=== PATIENT | male | born 1975 | race Caucasian/White ===

== ENCOUNTER 2016-07-29 14:49 | Emergency (ER) | payer OTHER ==
[2016-07-29 15:01] VITALS: TEMP 97.9; BMI 58.7
--- NOTE | 2016-07-29 15:02 | PDOC ---
Rapid Medical Evaluation Chief Complaint: Headache Time Seen by Provider: 07/29/16 14:56 Medical Evaluation: Allergies Allergy/AdvReac Type Severity Reaction Status Date / Time No Known Allergies Allergy Verified 01/18/16 02:33 07/29/16 14:57 I have performed a brief in-person evaluation of this patient. The patient presents with a chief complaint of: Headache and dizziness x 3 days. Has h/o HTN, ETOH cirrhosis C/B GIB Pertinent physical exam findings: Vss and well appearing, in NAD w/ neuro exam grossly intact I have ordered the following: chem/cbc/ua The patient will proceed to the ED for further evaluation. 07/29/16 15:00 07/29/16 15:01
[2016-07-29 15:17] LABS: BASOPHIL 0.8 % (0-2.0); EOSINOPHIL 3.1 % (0-4.5); MCH 28.1 pg (25.7-33.7); MCHC 33.3 g/dl (32.0-35.9); MEAN CELL VOLUME 84.3 fl (80-96); MEAN PLT VOLUME 7.7 fl (7.5-11.1); NEUTROPHILS 62.2 % (42.8-82.8); PLATELET COUNT 44 K/MM3 (134-434); RDW 19.5 % (11.9-15.9); WHITE BLOOD COUNT 5.8 K/mm3 (4.0-10.0)
[2016-07-29 15:18] LABS: URINE APPEARANCE CLEAR; URINE BILIRUBIN NEGATIVE (NEGATIVE); URINE BLOOD NEGATIVE (NEGATIVE); URINE COLOR YELLOW; URINE GLUCOSE (UA) NEGATIVE (NEGATIVE); URINE KETONE NEGATIVE (NEGATIVE); URINE LEUK ESTERASE NEGATIVE (NEGATIVE); URINE NITRITE NEGATIVE (NEGATIVE); URINE PROTEIN NEGATIVE (NEGATIVE); URINE UROBILINOGEN NEGATIVE E.U./dl (0.2-1.0)
[2016-07-29 15:48] LABS: ALBUMIN 3.3 g/dl (3.4-5.0); ANION GAP 8 (8-16); BILIRUBIN,TOTAL 3.9 mg/dL (0.2-1.0); CALCIUM 8.8 mg/dL (8.5-10.1); CO2 23 mmol/L (21-32); CREATININE 0.6 mg/dL (0.7-1.3); GLUCOSE,RANDOM 81 mg/dL (74-106); SGOT/AST 63 U/L (15-37); SGPT/ALT 48 U/L (12-78)
[2016-07-29 15:49] LABS: ALK PHOS 263 U/L (45-117)
[2016-07-29] MEDS ORDERED: METOCLOPRAMIDE HCL INJECTION 10 MG/2 ML VIAL IVPB ONE (16:32)
--- NOTE | 2016-07-29 16:33 | PDOC ---
History of Present Illness - History of Present Illness Initial Comments: 07/29/16 17:25 Patient is a 41 year old male with significant medical hx of HTN and liver cirrhosis (on transplant list for one year) who is presenting to the ED with three days of headache. Patient complains of persistent frontal headache that started suddenly three days ago. He's been taking tylenol for his pain with little relief. The patient denies any fever, chills, nausea, vomiting, visual changes, or vertigo. <Kaylie Justin - Last Filed: 07/29/16 18:24> <Emma Ojeda - Last Filed: 07/29/16 19:06> - General Chief Complaint: Headache Stated Complaint: HEADACHE Time Seen by Provider: 07/29/16 14:56 Past History <Kaylie Justin - Last Filed: 07/29/16 18:24> - Past Medical History Anemia: No Asthma: No Cancer: No Cardiac Disorders: No CVA: No COPD: No CHF: No Dementia: No Diabetes: No GI Disorders: Yes (UPPER GI BLEED FOR PORTAL HYPERTENSION) Disorders: No HTN: Yes Hypercholesterolemia: No Liver Disease: Yes (CIRRHOSIS, ALCOHOLIC HEPATITIS, HEPATIC ENCEPHALOPATHY) Suicide Attempt (Hx): No Seizures: No Thyroid Disease: No - Surgical History Abdominal Surgery: No Appendectomy: No Cardiac Surgery: No Cholecystectomy: No Lung Surgery: No Neurologic Surgery: No Orthopedic Surgery: No - Psycho/Social/Smoking Cessation Hx Anxiety: No Suicidal Ideation: No Smoking History: Former smoker Have you smoked in the past 12 months: No Number of Cigarettes Smoked Daily: 1 If you are a former smoker, when did you quit?: 2013 Information on smoking cessation initiated: No 'Breaking Loose' booklet given: 03/10/14 Hx Alcohol Use: No Drug/Substance Use Hx: No Substance Use Type: Alcohol Hx Substance Use Treatment: No <Emma Ojeda - Last Filed: 07/29/16 19:06> - Past Medical History Allergies/Adverse Reactions: Allergies Allergy/AdvReac Type Severity Reaction Status Date / Time No Known Allergies Allergy Verified 07/29/16 15:00 Home Medications: Ambulatory Orders Rifaximin [Xifaxan -] 550 mg PO BID #60 tablet 03/04/15 Nadolol [Corgard -] 20 mg PO DAILY #30 tablet 03/24/15 Pentoxifylline [Trental -] 400 mg PO TIDCM #90 tablet.er 03/24/15 Lactulose (Oral Use) [Cephulac -] 15 ml PO BID 05/04/15 Pantoprazole Sodium [Protonix -] 40 mg PO DAILY 01/18/16 Review of Systems - Review of Systems Comments:: 07/29/16 17:33 CONSTITUTIONAL: Absent: fever, chills, diaphoresis, generalized weakness, malaise, loss of appetite HEENT: Absent: rhinorrhea, nasal congestion, throat pain, throat swelling, difficulty swallowing, mouth swelling, ear pain, eye pain, visual changes CARDIOVASCULAR: Absent: chest pain, syncope, palpitations, irregular heart rate, lightheadedness , peripheral edema RESPIRATORY: Absent: cough, shortness of breath, dyspnea with exertion, orthopnea, wheezing, stridor, hemoptysis GASTROINTESTINAL: Absent: abdominal pain, abdominal distension, nausea, vomiting, diarrhea, constipation, melena, hematochezia GENITOURINARY: Absent: dysuria, frequency, urgency, hesitancy, hematuria, flank pain, genital pain MUSCULOSKELETAL: Absent: myalgia, arthralgia, joint swelling SKIN: Absent: rash, itching, pallor HEMATOLOGIC/IMMUNOLOGIC: Absent: easy bleeding, easy bruising, lymphadenopathy, frequent infections ENDOCRINE: Absent: unexplained weight gain, unexplained weight loss, heat intolerance, cold intolerance NEUROLOGIC: Present: headache Absent: focal weakness or paresthesia, dizziness, unsteady gait, seizure, mental status changes, bladder or bowel incontinence. PSYCHIATRIC: Absent: anxiety, depression, suicidal or homicidal ideation, hallucinations <Henry Justina - Last Filed: 07/29/16 18:24> *Physical Exam - Vital Signs Last Vital Signs Temp Pulse Resp BP Pulse Ox 97.9 F 67 18 117/61 100 07/29/16 14:57 07/29/16 14:57 07/29/16 14:57 07/29/16 14:57 07/29/16 14:57 - Physical Exam Comments: 07/29/16 17:33 GENERAL: Well developed, well nourished. Awake and alert. No acute distress. HEENT: Normocephalic, atraumatic. PERRLA, EOMI. No conjunctival pallor. Scleral icterus. Moist mucous membranes. Oropharynx is clear. NECK: Supple. Full ROM. No JVD. Carotid pulses 2+ and symmetric, without bruits. No thyromegaly. No lymphadenopathy. CARDIOVASCULAR: Regular rate and rhythm. No murmurs, rubs, or gallops. Distal pulses are 2+ and symmetric. PULMONARY: No evidence of respiratory distress. Lungs clear to auscultation bilaterally. No wheezing, rales or rhonchi. ABDOMINAL: Soft. Non-tender. Non-distended. No rebound or guarding. No organomegaly. Normoactive bowel sounds. MUSCULOSKELETAL: Normal range of motion at all joints. No bony deformities or tenderness. No CVA tenderness. EXTREMITIES: No cyanosis. No clubbing. No edema. No calf tenderness. SKIN: Warm and dry. Normal capillary refill. No rashes. Jaundice (baseline). NEUROLOGICAL: Alert, awake, appropriate. Cranial nerves 2-12 intact. Normal speech. Gait is normal without ataxia. PSYCHIATRIC: Cooperative. Good eye contact. Appropriate mood and affect. <Kaylie Justin - Last Filed: 07/29/16 18:24> - Vital Signs Last Vital Signs Temp Pulse Resp BP Pulse Ox 97.9 F 67 18 117/61 100 07/29/16 14:57 07/29/16 14:57 07/29/16 14:57 07/29/16 14:57 07/29/16 14:57 <Emma Ojeda - Last Filed: 07/29/16 19:06> ED Treatment Course - LABORATORY CBC & Chemistry Diagram: 07/29/16 15:10 07/29/16 15:10 - ADDITIONAL ORDERS Additional order review: Laboratory Results 07/29/16 07/29/16 15:10 15:10 Sodium 143 Potassium 4.1 Chloride 112 H Carbon Dioxide 23 Anion Gap 8 BUN 8 D Creatinine 0.6 L Creat Clearance w eGFR > 60 Random Glucose 81 Calcium 8.8 Total Bilirubin 3.9 H D AST 63 H D ALT 48 D Alkaline Phosphatase 263 H Total Protein 7.0 Albumin 3.3 L Lipase 270 Urine Color Yellow Urine Appearance Clear Urine pH 8.0 D Urine Protein Negative Urine Glucose (UA) Negative Urine Ketones Negative Urine Blood Negative Urine Nitrite Negative Urine Bilirubin Negative Urine Urobilinogen Negative Ur Leukocyte Esterase Negative 07/29/16 15:10 RBC 5.10 MCV 84.3 MCHC 33.3 RDW 19.5 H D MPV 7.7 Neutrophils % 62.2 D Lymphocytes % 22.8 D Monocytes % 11.1 H Eosinophils % 3.1 Basophils % 0.8 - RADIOLOGY Radiograph Interpretation: 07/29/16 18:[address] Impression: Mild volume loss and ventricular dilatation without gross evidence of acute intracranial pathology. Correlate clinically to determine further evaluation and follow-up. Reported By: Antony Pagan MD - Medications Given in the ED: ED Medications Discontinued Medications Generic Name Dose Route Start Last Admin Trade Name Toneq PRN Reason Stop Dose Admin Diphenhydramine HCl 25 mg 07/29/16 16:32 07/29/16 17:03 Benadryl Injection - IVPUSH 07/29/16 16:33 25 mg ONCE ONE Administration Metoclopramide HCl 10 mg 07/29/16 16:32 07/29/16 17:03 Reglan Injection - IVPB 07/29/16 16:33 10 mg ONCE ONE Administration - Consult/PCP Time Called: 18:04 (Case discussed with nurse covering for Dr. Serrano from [facility]. Requesting blood alcohol level due to new onset of slceral icterus.) <Kaylie Justin - Last Filed: 07/29/16 18:24> - LABORATORY CBC & Chemistry Diagram: 07/29/16 15:10 07/29/16 15:10 - ADDITIONAL ORDERS Additional order review: Laboratory Results 07/29/16 07/29/16 15:10 15:10 Sodium 143 Potassium 4.1 Chloride 112 H Carbon Dioxide 23 Anion Gap 8 BUN 8 D Creatinine 0.6 L Creat Clearance w eGFR > 60 Random Glucose 81 Calcium 8.8 Total Bilirubin 3.9 H D AST 63 H D ALT 48 D Alkaline Phosphatase 263 H Total Protein 7.0 Albumin 3.3 L Lipase 270 Urine Color Yellow Urine Appearance Clear Urine pH 8.0 D Urine Protein Negative Urine Glucose (UA) Negative Urine Ketones Negative Urine Blood Negative Urine Nitrite Negative Urine Bilirubin Negative Urine Urobilinogen Negative Ur Leukocyte Esterase Negative 07/29/16 15:10 RBC 5.10 MCV 84.3 MCHC 33.3 RDW 19.5 H D MPV 7.7 Neutrophils % 62.2 D Lymphocytes % 22.8 D Monocytes % 11.1 H Eosinophils % 3.1 Basophils % 0.8 - RADIOLOGY Radiology Studies Ordered: Category Date Time Status HEAD CT WITHOUT CONTRAST [CT] Stat CT Scan 07/29/16 16:31 Ordered <Emma Ojeda - Last Filed: 07/29/16 19:06> Medical Decision Making - Medical Decision Making 07/29/16 18:51 41-year-old male presents with 3 day persistent new headache. It is frontal, not associated with any gross focal neural deficits. He has thrombocytopenia with platelets of 41,000. This is a chronic situation He is on the liver transplant waiting list and followed at [facility]. He has icteric sclera. I spoke with Jasmina Garner from the transplant team and she has requested an alcohol level since his icteric sclera was new. Alcohol level was negative. CAT scan of the head did not show any acute intracranial pathology. Patient's headache resolved and the patient was discharged to follow-up with Dr. Alston at [facility] <Emma Ojeda - Last Filed: 07/29/16 19:06> *DC/Admit/Observation/Transfer - Attestations Scribe Attestion: 07/29/16 17:34 Documentation prepared by Kaylie Justin, acting as medical technicians for Emma Ojeda MD. <Kaylie Justin - Last Filed: 07/29/16 18:24> <Emma Ojeda - Last Filed: 07/29/16 19:06> Diagnosis at time of Disposition: Thrombocythemia Alcoholic cirrhosis Qualifiers: Ascites presence: without ascites Qualified Code(s): K70.30 - Alcoholic cirrhosis of liver without ascites - Discharge Dispostion Disposition: HOME Condition at time of disposition: Stable - Referrals Referrals: Vibha Barnard MD [Primary Care Provider] - Felipe Rao MD [Staff Physician] - Favian Schneider MD [Staff Physician] - - Patient Instructions Printed Discharge Instructions: DI for Hormonal and Tension Headaches Additional Instructions: please followup with your doctors at [facility] I have given you the name of a neurologist that you should contact if you have recurrent headaches Return if you develop headaches associated with visual changes,arm or leg weakness,or vomiting
[2016-07-29] MEDS ORDERED: METOCLOPRAMIDE HCL INJECTION 10 MG/2 ML VIAL ONE (16:54)
[2016-07-29 19:20] VITALS: BP 122/65; PULSE 70
== END 2016-07-29 19:22 | disposition home or self-care (01) ==
LOC: SUPCPDRO 14:49 → JER 14:49
PROC: 3E033GC Introduction of Other Therapeutic Substance into Peripheral Vein, Percutaneous Approach (ICD-10-PCS; principal; 2016-07-29)
DX: D69.6 Thrombocytopenia, unspecified (principal); K70.30 Alcoholic cirrhosis of liver without ascites; I10 Essential (primary) hypertension
CPT/HCPCS: 36415; 70450-TC; 80053; 80307; 81003; 83690; 85025; 96374; 96375; 99283-25

== ENCOUNTER 2018-01-09 18:55 | Emergency (ER) | payer OTHER ==
--- NOTE | 2018-01-09 19:07 | PDOC ---
Rapid Medical Evaluation Time Seen by Provider: 01/09/18 19:04 Medical Evaluation: Allergies Allergy/AdvReac Type Severity Reaction Status Date / Time No Known Allergies Allergy Verified 07/29/16 15:00 01/09/18 19:06 I have performed a brief in-person evaluation of this patient. The patient presents with a chief complaint of: Sent in for low potassium on labs yesterday. +malaise. H/o etoh cirrhosis, liver ca (on tx list at [facility]), upper GIB Pertinent physical exam findings:stable I have ordered the following:labs/ekg The patient will proceed to the ED for further evaluation. 01/09/18 19:13 01/09/18 19:17 Discharge Disposition - Diagnosis Hypokalemia - Referrals - Patient Instructions - Post Discharge Activity
[2018-01-09 19:18] VITALS: BMI 30.2
[2018-01-09 19:44] LABS: BASO % 1.3 % (0-2.0); EOS % 5.1 % (0-4.5); HEMATOCRIT 30.6 % (35.4-49); HEMOGLOBIN 11.1 GM/dL (11.7-16.9); LYMPH % 20.5 % (8-40); MCH 35.9 pg (25.7-33.7); MCHC 36.3 g/dl (32.0-35.9); MEAN CELL VOLUME 98.9 fl (80-96); MONO % 10.7 % (3.8-10.2); NEUT % 62.4 % (42.8-82.8); PLATELET COUNT 66 K/MM3 (134-434); RBC 3.09 M/mm3 (4.00-5.60); WHITE BLOOD COUNT 6.2 K/mm3 (4.0-10.0)
[2018-01-09 20:17] LABS: ALBUMIN 2.4 g/dl (3.4-5.0); ALK PHOS 188 U/L (45-117); ANION GAP 9 MMOL/L (8-16); BILIRUBIN,TOTAL 8.4 mg/dL (0.2-1); BLOOD UREA NITROGEN 12 mg/dL (7-18); CALCIUM 7.4 mg/dL (8.5-10.1); CHLORIDE 107 mmol/L (98-107); CO2 25 mmol/L (21-32); CREATININE 0.6 mg/dL (0.55-1.3); GLUCOSE,RANDOM 105 mg/dL (74-106); POTASSIUM 3.6 mmol/L (3.5-5.1); SGOT/AST 102 U/L (15-37); SGPT/ALT 43 U/L (13-61); SODIUM 141 mmol/L (136-145); TOT PROT 5.8 g/dl (6.4-8.2)
[2018-01-09] MEDS ORDERED: MAGNESIUM 1GM/D5W - 2 GM/200 ML IVPB IVPB ONE (21:27)
--- NOTE | 2018-01-09 22:11 | PDOC ---
History of Present Illness - General Chief Complaint: Revisit, Lab Variance Stated Complaint: LOW POTASSIUM Time Seen by Provider: 01/09/18 19:04 History Source: Patient Exam Limitations: No Limitations - History of Present Illness Initial Comments: 42 y/o M hx of alcoholic cirrhosis (on transplant list at [facility]), upper GI bleed , hepatic encephalopathy (on Lactulose) presents as states he had routine blood work done yesterday and was told his K was low (unsure of exact number). Mentions having some watery diarrhea x 2 days. Otherwise denies fever, sob, cp, abd pain, n/v, cramping, weakness, urinary complaints Current Meds: Rifaximin, Nadolol, Lactulose, Pantoprazole, Amitriptyline, Ciprofloxacin, Spironolactone 01/09/18 22:06 Past History - Past Medical History Allergies/Adverse Reactions: Allergies Allergy/AdvReac Type Severity Reaction Status Date / Time No Known Allergies Allergy Verified 07/29/16 15:00 Home Medications: Ambulatory Orders Rifaximin [Xifaxan -] 550 mg PO BID #60 tablet 03/04/15 Nadolol [Corgard -] 20 mg PO DAILY #30 tablet 03/24/15 Pentoxifylline [Trental -] 400 mg PO TIDCM #90 tablet.er 03/24/15 Lactulose (Oral Use) [Cephulac -] 15 ml PO BID 05/04/15 Pantoprazole Sodium [Protonix -] 40 mg PO DAILY 01/18/16 Butalb/Acetaminophen/Caffeine [Fioricet 50-300-40 mg Capsule] 1 each PO DAILY PRN #7 capsule 07/29/16 Anemia: No Asthma: No Cancer: No Cardiac Disorders: No CVA: No COPD: No CHF: No Dementia: No Diabetes: No GI Disorders: Yes (UPPER GI BLEED FOR PORTAL HYPERTENSION) Disorders: No HTN: Yes Hypercholesterolemia: No Liver Disease: Yes (CIRRHOSIS, ALCOHOLIC HEPATITIS, HEPATIC ENCEPHALOPATHY) Seizures: No Thyroid Disease: No - Surgical History Abdominal Surgery: No Appendectomy: No Cardiac Surgery: No Cholecystectomy: No Lung Surgery: No Neurologic Surgery: No Orthopedic Surgery: No - Suicide/Smoking/Psychosocial Hx Smoking History: Never smoked Have you smoked in the past 12 months: No Number of Cigarettes Smoked Daily: 1 If you are a former smoker, when did you quit?: 2013 Information on smoking cessation initiated: No 'Breaking Loose' booklet given: 03/10/14 Hx Alcohol Use: No Drug/Substance Use Hx: No Substance Use Type: Alcohol Hx Substance Use Treatment: No Review of Systems - Review of Systems Comments:: See HPI 01/09/18 22:09 *Physical Exam - Vital Signs Last Vital Signs Temp Pulse Resp BP Pulse Ox 98.3 F 69 18 108/75 98 01/09/18 19:16 01/09/18 19:16 01/09/18 19:16 01/09/18 19:16 01/09/18 19:16 - Physical Exam General Appearance: No: Apparent Distress HEENT: positive: Scleral Icterus (R), Scleral Icterus (L) Respiratory/Chest: positive: Lungs Clear, Normal Breath Sounds. negative: Respiratory Distress Cardiovascular: positive: Regular Rhythm, Regular Rate, S1, S2. negative: Murmur Gastrointestinal/Abdominal: positive: Normal Bowel Sounds, Soft, Hernia. negative: Tender, Protuberent, Distended, Guarding, Rebound, Tenderness, Mass Neurologic: positive: Fully Oriented, Alert, Normal Mood/Affect Moderate Sedation - Procedure Monitoring Vital Signs: Procedure Monitoring Vital Signs Temperature 98.3 F 01/09/18 19:16 Pulse Rate 69 01/09/18 19:16 Respiratory Rate 18 01/09/18 19:16 Blood Pressure 108/75 01/09/18 19:16 O2 Sat by Pulse Oximetry (%) 98 01/09/18 19:16 ED Treatment Course - LABORATORY CBC & Chemistry Diagram: 01/09/18 19:38 01/09/18 19:38 - ADDITIONAL ORDERS Additional order review: Laboratory Results 01/09/18 01/09/18 19:38 19:38 Sodium 141 Potassium 3.6 Chloride 107 Carbon Dioxide 25 Anion Gap 9 BUN 12 Creatinine 0.6 Creat Clearance w eGFR > 60 Random Glucose 105 Calcium 7.4 L Magnesium 1.7 L Total Bilirubin 8.4 H AST 102 H ALT 43 Alkaline Phosphatase 188 H Total Protein 5.8 L Albumin 2.4 L 01/09/18 19:38 RBC 3.09 L MCV 98.9 H MCHC 36.3 H RDW 17.0 H MPV 9.0 D Neutrophils % 62.4 Lymphocytes % 20.5 Monocytes % 10.7 H Eosinophils % 5.1 H Basophils % 1.3 Medical Decision Making - Medical Decision Making 42 y/o M hx of alcoholic cirrhosis (on transplant list at [facility]), upper GI bleed , hepatic encephalopathy (on Lactulose) presents with c/o hypokalemia from labs drawn yesterday. Current labs reviewed here with normal potassium, though Mg was 1.7. Patient's Mg was corrected with 2 grams Mg sulfate. Patient otherwise appears well with no other complaints. He is already taking PO potassium supplements. Stable for d/c 01/09/18 22:10 *DC/Admit/Observation/Transfer Diagnosis at time of Disposition: Hypomagnesemia - Discharge Dispostion Disposition: HOME Condition at time of disposition: Good Decision to Admit order: No - Referrals Referrals: Vibha Barnard MD [Primary Care Provider] - 3 days - Patient Instructions Additional Instructions: Thank you for choosing [facility]. It was a pleasure taking care of you. Your bloodwork showed that your potassium was normal but that your magnesium was a bit low, which was corrected here. Please be sure to follow-up with your PCP within 3 days. Return to the Emergency Department if your symptoms worsen or persist, you have fever, shortness of breath, chest pain, severe abdominal pain, vomiting, distended abdomen, feel lethargic, weak or have other concerning symptoms. - Post Discharge Activity
[2018-01-09 23:08] VITALS: BP 132/77; PULSE 81; TEMP 98
== END 2018-01-09 23:08 | disposition home or self-care (01) ==
LOC: JER 18:55
PROC: 3E033GC Introduction of Other Therapeutic Substance into Peripheral Vein, Percutaneous Approach (ICD-10-PCS; principal; 2018-01-09)
DX: E83.42 Hypomagnesemia (principal); K70.30 Alcoholic cirrhosis of liver without ascites; K70.10 Alcoholic hepatitis without ascites; K72.90 Hepatic failure, unspecified without coma
CPT/HCPCS: 36415; 80053; 83735; 85025; 96365; 96366; 99281-25